=== PATIENT | male | born 1960 | race Caucasian/White ===

== ENCOUNTER 2018-04-10 13:39 | Day surgery (SDC) | payer OTHER ==
[~2018-04-10 13:39] MED LIST: ACETAMINOPHEN 1,000 MG/100 ML BTL IV ONE; CLINDAMYCIN PHOS/D5W 900MG 900 MG/50 ML BAG IVPB ONE
[2018-04-10] MEDS ORDERED: BUPIVACAINE 0.5% W/EPI MPF 30 ML VIAL IVP ONE (13:40)
[2018-04-10] MEDS ORDERED: LIDOCAINE 2% MDV (20MG/ML) 20ML VIAL IV ONE (13:40)
[2018-04-10] MEDS ORDERED: SEVOFLURANE 250 ML INH ONE (13:40)
[2018-04-10] MEDS ORDERED: MORPHINE SULFATE 10 MG/ML VIAL IVP ONE (13:40)
[2018-04-10] MEDS ORDERED: PROPOFOL 10 MG/ML VIAL IV ONE (13:40)
[2018-04-10] MEDS ORDERED: MORPHINE SULFATE 4 MG/ML VIAL ONE (15:15)
--- NOTE | 2018-04-11 08:50 | Operative Note ---
DATE OF SURGERY: 04/10/2018 PREOPERATIVE DIAGNOSIS: Internal derangement of the right knee with a locked knee. POSTOPERATIVE DIAGNOSIS: Displaced bucket handle tear of the medial meniscus. OPERATION: Right knee arthroscopy with subtotal medial meniscectomy. Staff Surgeon: Calvin Lao MD Anesthesia: General. Preparation: Chloraprep. Individual Considerations: None. PROCEDURE: The patient was taken to the operating room and placed supine on the operating room table. The patient had a successful induction with general anesthetic. The right lower extremity was prepped and draped in the usual fashion. The patient had a superolateral inflow cannula placed. Skin was infiltrated with 0.5% Marcaine with epinephrine prior. A clear effusion was drained. The knee was inflated with normal saline. An inferomedial and an inferolateral portal were made in a similar fashion. The arthroscope was introduced through the inferolateral portal up into the pouch. Patellofemoral compartment was normal. No loose bodies were seen in the pouch or either gutter. In the medial compartment, he had obvious displaced bucket handle tear of the medial meniscus which was stuck on the knee. In the notch, the cruciates were normal. Lateral compartment structures were normal. Attention then went back to the medial compartment. It was detached anteriorly medially and then detached posteriorly laterally and removed in pieces. I removed I would say 80% of the meniscus. the articular cartilage in the back had small grade 3 change but nothing of significance. The knee was irrigated out with saline to remove loose floating debris. Portals were closed with nhung, and 20 mL of 0.5% Marcaine with epinephrine along with 4 mg of morphine and 40 mg of Depo-Medrol were injected into the knee. A sterile bulky compressive dressing was applied. The patient tolerated procedure well. Needle and sponge counts were correct. Estimated blood loss was minimal. He was taken back to recovery in good condition. There were no complications. [facility]
== END 2018-04-10 17:00 | disposition home or self-care (01) ==
LOC: SUR 13:39
PROVIDERS: ATTEND Orthopaedic Surgery
DX: S83.211A Bucket-handle tear of medial meniscus, current injury, right knee, initial encounter (principal); M23.91 Unspecified internal derangement of right knee; I10 Essential (primary) hypertension; E11.9 Type 2 diabetes mellitus without complications; Z86.73 Personal history of transient ischemic attack (TIA), and cerebral infarction without residual deficits
CPT/HCPCS: J2270; J3490